=== PATIENT | female | born 1950 | race African-American/Black ===

== ENCOUNTER → 2017-02-05 | Outpatient (CLI) | payer OTHER ==
[~2017-02-05] MED LIST: ADVAIR 250-501 EACH INH; ALBUTEROL17 GM INH; ALBUTEROL20 ml INH; ALL DAY ALLERGY10 M3 PO; ASPIRIN EC81 M1 PO; ASPIRIN ENTERI325 M1 PO; ASPIRIN81 MG PO; CARVEDILOL12.5 MG PO; CHLORTHALIDONE50 M1 PO; COREG3.125 MG PO; COZAAR100 MG PO; D3 DOTS2000 UNIT PO; DIFLUCAN100 MG PO; FENOFIBRATE48 MG PO; HYDROCODON-ACE1 EAC7 PO; ISOSORBIDE MONO30 M1 PO; JANUVIA50 MG PO; LANTUS SOLOSTAR3 ML SUBQ; LEVOFLOXACIN500 MG PO; LIPITOR40 MG PO; LIPITOR80 MG PO; LOSARTAN POTASS25 MG PO; LOSARTAN POTASS50 MG PO; LOSARTAN-HCTZ1 EAC2 PO; METFORMIN HCL500 M1 PO; METHYLPREDNISOLO4 M1 PO; MONTELUKAST SOD10 MG PO; MONUROL3 GM PO; NATEGLINIDE120 MG PO; NITROSTAT0.4 MG SL; NORVASC10 MG PO; NYSTATIN5 ML PO; OMEGA 3 FISH1 CAP.EC PO; PLAVIX PO; SPIRIVA18 MCG INH; TAMIFLU6 MG/1 ML PO; TESSALON PERLE100 M1 PO; TIZANIDINE HCL2 MG PO; VITAMIN D5000 UNIT PO; ZETIA PO; ZYRTEC10 M1 PO
--- NOTE | ~2017-02-05 | US77 ---
[facility] A Service of [facility] RADIOLOGY TEXT RESULTS PATIENT: COLIN JONES LOCATION: [facility] : 48 UNIT #: [id number] AGE: [address]: Kathleen العراقي MD SEX: F ORDER DR: [id number] [facility] [address] [place], [place] [address] [id number] O MR#: [id number] Acc #: [id number] NAME: COLIN JONES : 1950 SEX: F STUDY DATE/TIME: 02/05/2017 12:27 UNIT: [facility] ROOM: STUDY DESCRIPTION: US Kidney Bilateral Complete Attending Physician: Kathleen العراقي M.D. Referring Physician: Kathleen العراقي M.D. Ordering Physician: Kathleen العراقي M.D. Primary Care Physician: Víctor Caballero MEDICAL IMAGING REPORT This report is preliminary unless electronic signature is present EXAM Renal ultrasound. HISTORY Stage 3 chronic kidney disease. PROCEDURE Grayscale and Doppler imaging of the kidneys and bladder. COMPARISON STUDIES None FINDINGS Right kidney measures 9.9 cm. The left kidney measures 9.4 cm. No hydronephrosis. Bladder is decompressed and not seen. IMPRESSION Negative renal ultrasound. Dictated by... Juni Oliveira M.D. THIS IS AN ELECTRONICALLY VERIFIED REPORT Juni Oliveira M.D. at 02/06/2017 7:05 AM Chan TD: 02/05/2017 18:21 JOB #: [id number] MEDICAL IMAGING REPORT COPY
== END | disposition home or self-care (01) ==
LOC: CGUS 11:47
DX: I12.9 Hypertensive chronic kidney disease with stage 1 through stage 4 chronic kidney disease, or unspecified chronic kidney disease (principal); N18.3 Chronic kidney disease, stage 3 (moderate)
CPT/HCPCS: 76770

== ENCOUNTER 2017-07-30 02:38 | Observation (INO) | payer OTHER ==
[~2017-07-30] VITALS: Ht 165.1 cm; Wt 65.1 kg
--- NOTE | ~2017-07-30 | CT71 ---
[facility] A Service of [facility] RADIOLOGY TEXT RESULTS PATIENT: COLIN JONES LOCATION: [facility] [id number] : 49 UNIT #: [id number] AGE: [address]: LUKE JOY V SEX: F ORDER DR: [id number] [facility]. [place], [place] [address] [id number] I MR#: [id number] Acc #: [id number] NAME: COLIN JONES : 1950 SEX: F STUDY DATE/TIME: 07/30/2017 3:34 UNIT: [facility] ROOM: [facility] STUDY DESCRIPTION: CT Head Wo Contrast Attending Physician: Luke Joy M.D. Ordering Physician: Sean Romo D.O. Primary Care Physician: Víctor Rivers MEDICAL IMAGING REPORT This report is preliminary unless electronic signature is present EXAM CT head without contrast INDICATION Dizziness and headache tonight. PROCEDURE Unenhanced CT of the head. This CT examination was performed with one or more of the following radiation dose reduction techniques: automatic exposure control, adjustment of mA and/or kV according to patient size, and iterative reconstruction. COMPARISON None. FINDINGS No acute hemorrhage, abnormal mass effect, extraaxial fluid collection or hydrocephalus. No depressed calvarial fracture. The paranasal sinuses and mastoid air cells are clear. IMPRESSION No acute intracranial findings. Dictated by... Juni Oliveira M.D. THIS IS AN ELECTRONICALLY VERIFIED REPORT Juni Oliveira M.D. at 07/31/2017 9:56 PM EED/adiel TD: 07/30/2017 12:29 JOB #: [id number] [facility] A Service of [facility] RADIOLOGY TEXT RESULTS PATIENT: COLIN JONES LOCATION: [facility] [id number] : 49 UNIT #: [id number] AGE: [address]: LUKE JOY V SEX: F ORDER DR: MEDICAL IMAGING REPORT Page 1 of 1 COPY
--- NOTE | ~2017-07-30 | CO ---
Unit #: [id number] #: [id number] Patient: COLIN JONES [id number] [facility]. [place], [place] [address] [id number] I MR#: [id number] NAME: COLIN JONES ROOM: [facility] Age: 67 Sex: F Admission Date: 07/30/2017 : 1950 Attending Physician: Tacho Vazquez M.D. Primary Care Physician: Víctor Rivers Consultation Date: 07/30/2017 CONSULTATION REPORT REASON FOR CONSULTATION Nears syncope. HISTORY OF PRESENT ILLNESS The patient is a 67-year-old female with extensive history in the past of peripheral vascular as well as coronary artery disease. The patient had a cardiac cath in 02/2013 that showed nonobstructive disease except for 60% to 70% RCA and she was treated medically. She also has had a history of stent placed to the right iliac and that stent was patent. She has renal artery stenosis at 70% in the right side. She has a history of a stroke 10 years ago, but most recently was at [facility] and presented with symptoms of a stroke. She had respiratory failure. She qualified for tPA. A CT of the head showed a right internal carotid artery stenosis and she underwent emergent thrombectomy. Echocardiogram done at [facility] showed normal LV function, estimated ejection fraction 88%, severe left atrial enlargement, ichb-ce-pelltpla mitral stenosis with valve area of 1.44 cm2, and moderate MR. She had a negative bubble study. She also had a Holter monitor that showed no arrhythmias and was recommended for outpatient event monitor. The patient reports to me that she had, had a heart attack, but I see no documentation of this and no consultation with Cardiology. Her last ischemic workup with cardiac cath done at [facility] in 2014. The patient had respiratory failure during that admission and she was placed on the ventilator and eventually extubated. She also developed some hematuria. Her anti-platelet was held. She had been on aspirin and Brilinta. She underwent a cystoscopy that found a bladder tumor. She had a bladder tumor biopsy and fulguration of bladder tumor. Pathology came back positive for urothelial carcinoma. She did have persistent hematuria and the decision was made to stop her Brilinta and she was discharged on aspirin only. Yesterday, the patient had some back pain and she rubbed Beng[place] on her back. She laid in bed and under a few blanket she became very hot and sweaty and felt very weak. There was apparently some loss of bowel. Her daughter was concerned and EMS brought her to [facility] because it was the closest facility. She is currently asymptomatic. She did have some orthostatics done, lying was 155/49, sitting was 112/53, and standing was 109/46 with an unremarkable change in heart rate with heart rate as high as 73. The patient is in no acute distress. PAST MEDICAL HISTORY 1. Significant for history of stroke 10 years ago. History of [place] and stent in the . Last cardiac cath was in 02/2015, 60% to 70% ostial Unit #: [id number] #: [id number] Patient: COLIN JONES RCA, other disease was nonobstructive, normal LV function, moderate to severe mitral valve stenosis with mitral valve area of 1.44 cm2, reported mild in the past, but on most recent echo with no significant stenosis was noted only calcification. 2. Diabetes. 3. Chronic obstructive pulmonary disease. 4. Hypertension. 5. Anemia. 6. Renal artery stenosis. 7. Iliac stenosis, status post iliac stent, patent on last coronary angiography. 8. Status post acute CVA with thrombectomy to the right internal carotid artery and status post tPA administration. 9. Hematuria. 10. Urothelial carcinoma of recent diagnosis. SOCIAL HISTORY The patient does not smoke. She is an ex-smoker. No alcohol or drug abuse. ALLERGIES Penicillin, codeine, and grass. HOME MEDICATIONS Zyrtec 10 mg daily, losartan and hydrochlorothiazide 1 tab p.o. daily, Tessalon Perles 100 mg every 8 hours, methylprednisolone 4 mg daily, nateglinide 120 mg t.i.d. before meals. FAMILY HISTORY Noncontributory. REVIEW OF SYSTEMS Complains of weakness, flushing, feeling hot. No fever, chills, cough, nausea, vomiting, diarrhea, headache, loss of consciousness, chest pain, pressure tightness, palpitations, or shortness of air. All other review of systems is negative. PHYSICAL EXAMINATION GENERAL: The patient is awake and alert, in no apparent distress. Color is pink. SKIN: Warm and dry. VITAL SIGNS: Afebrile, heart rate 73, blood pressure 156/83. HEENT: Pupils equal, round, and reactive. NECK: Normal carotid upstrokes. No auscultated bruit. Negative JVD, lying supine. Negative hepatojugular reflux. CHEST: Respirations are regular, unlabored at rest. Bilateral breath sounds have good air entry throughout all lung celeste. No crackles, rubs, or wheezes are heard. HEART: S1 and S2. Regular rate and rhythm. No rubs or gallops. 2/6 end-diastolic murmur. ABDOMEN: Soft, nontender, and nondistended. Positive bowel sounds in all 4 quadrants. No ascites noted. EXTREMITIES: Bilateral lower extremities have no pretibial pitting edema. DP/PT pulses are 2+. Cap refill less than 3 seconds. MUSCULOSKELETAL: Moves all extremities without difficulty. DIAGNOSTIC STUDIES CARDIOVASCULAR STUDIES: EKG shows sinus rhythm with left atrial Unit #: [id number] #: [id number] Patient: ROBERT,COLIN enlargement and left ventricular hypertrophy. LABORATORY RESULTS: Urinalysis shows 3+ leukocyte, nitrites are negative, trace protein, present yeast, negative for bacteria. White blood cell count 13.9, hemoglobin 11, hematocrit 34.7, and platelet count 442. Sodium 134, potassium 3.8, chloride 96, CO2 of 28, BUN 25, creatinine 1.4. Troponin negative x1. IMAGING STUDIES: CT of the head was unremarkable. Chest x-ray showed cardiomegaly. IMPRESSION 1. Near syncope with loss of bowel control. 2. History of coronary artery disease with nonobstructive except for 60% to 70% right coronary artery treated medically. 3. Recent stroke, status post tPA administration and thrombectomy of the right carotid artery. 4. Orthostasis. 5. Recent diagnosis of bladder cancer, status post biopsy and fulguration, positive for urothelial carcinoma. 6. Hypertension. 7. Hyperlipidemia. 8. Significant peripheral vascular disease. PLAN The patient is orthostatic and encourage her to use DECLAN hose. We will stop hydrochlorothiazide and possibly Cozaar. We will discontinue the patient's hydrochlorothiazide and reduce her losartan to 25 mg a day to help prevent orthostasis. She appears dry and is getting IV fluids. No further cardiac workup planned at this time. Dictated by... Priya Patterson APRN LR/amberly TD: 07/30/2017 22:17 JOB #: [id number] CONSULTATION REPORT Page 1 of 1 X X CONSULTATION REPORT
--- NOTE | ~2017-07-30 | DS ---
Unit #: [id number] #: [id number] Patient: COLIN JONES [id number] [address] [place], [place] [address] [id number] I MR#: [id number] NAME: COLIN JONES ROOM: 5 Age: 67 Sex: F Admission Date: 07/30/2017 : 1950 Discharge Date: 08/01/2017 Attending Physician: Tacho Vazquez M.D. Primary Care Physician: Víctor Rivers DISCHARGE SUMMARY DISCHARGE DIAGNOSES 1. Syncope with collapse. 2. Hypotension. 3. Hypovolemia. HOSPITAL COURSE AND PERTINENT HISTORY The patient is a 67-year-old woman with a recent prior complicated medical history. She was recently admitted at [facility] from 06/25/2017 to 07/28/2017 for a right MCA thrombosis for which she underwent a tPA and then thrombectomy following which was a prolonged course of respiratory failure being on a ventilator, being treated for COPD and pneumonia. Followed by hematuria secondary to bladder cancer and underwent clot evacuation and fulguration, only maintained on aspirin due to risk of bleeding with any addition of antiplatelet or anticoagulant. The patient presented following a syncopal with collapsed episode while at home. On admission, she was noted to be hypotensive and hypovolemic. Her antihypertensive medication dosage losartan with hydrochlorothiazide was discontinued and she was put on a lowered dose of Cozaar 25 mg once daily. Also during her admission, she was noted to have cystitis for which she was receiving empiric IV antibiotic. However, urine cultures, which were done twice both demonstrated contaminated specimens. Therefore, she will be discharged on outpatient single dose of fosfomycin for empiric therapy. At time of discharge, the patient's vitals are stable. The patient is comfortable, breathing comfortably, afebrile. She will be discharged home with Home Health Services, which were initially set up during her prior discharge from [facility] and she will continue all of her previous medications with exception of losartan/hydrochlorothiazide, which was discontinued and only be on the lower dose of losartan 25 mg once a day. DISCHARGE MEDICATIONS Albuterol inhaler 2 puffs q.6 p.r.n., Advair 250/50 one puff daily, Medrol Dosepak tapered dose, Spiriva 1 inhalation daily, nateglinide 120 mg p.o. t.i.d. before meals, Januvia 50 mg p.o. daily, cetirizine 10 mg p.o. daily, Coreg 12.5 mg p.o. b.i.d., fenofibrate 48 mg p.o. once daily, Singulair 10 mg p.o. once daily, enteric-coated aspirin 81 mg p.o. once daily, fosfomycin 3 g single dose with glass of water, Cozaar 25 mg 1 tablet p.o. once daily. DISCHARGE INSTRUCTIONS Follow up with primary care physician. Follow up with Home Health Services. Follow up with dermatologist, Dr. Chilel, on 10/01/2017 at 12:30 p.m. Unit #: [id number] #: [id number] Patient: COLIN JONES Dictated by... Nasima Unger/amberly TD: 08/04/2017 09:30 JOB #: [id number] DISCHARGE SUMMARY Page 1 of 1 X X DISCHARGE SUMMARY
--- NOTE | ~2017-07-30 | CR72 ---
[facility] A Service of [facility] & [facility] RADIOLOGY TEXT RESULTS PATIENT: COLIN JONES LOCATION: [facility] 575-01 : [birth year] UNIT #: [id number] AGE: [address]: LUKE JOY V SEX: F ORDER DR: [id number] [facility] [address] [place], [place] [address] [id number] I MR#: [id number] Acc #: [id number] NAME: COLIN JONES : 1950 SEX: F STUDY DATE/TIME: 07/30/2017 3:23 UNIT: [facility] ROOM: [facility] STUDY DESCRIPTION: CR Chest Single View Portable Attending Physician: Luke Joy M.D. Ordering Physician: Sean Romo D.O. Primary Care Physician: Víctor Rivers MEDICAL IMAGING REPORT This report is preliminary unless electronic signature is present EXAM Portable chest INDICATION Syncope today. PROCEDURE Frontal view chest. COMPARISON 01/25/2016 FINDINGS Moderate cardiomegaly. Pulmonary vessels are very similar to the prior. No dense consolidation, visible pleural fluid, or pneumothorax. IMPRESSION Cardiomegaly. No active process. Dictated by... Juni Oliveira M.D. THIS IS AN ELECTRONICALLY VERIFIED REPORT Juni Oliveira M.D. at 07/31/2017 9:56 PM APPLED/symone TD: 07/30/2017 11:16 JOB #: [id number] MEDICAL IMAGING REPORT Page 1 of 1 COPY
--- NOTE | ~2017-07-30 | HP ---
Unit #: [id number] #: [id number] Patient: COLIN JONES [id number] [facility] [address] [place], [place] [address] [id number] I MR#: [id number] NAME: COLIN JONES ROOM: [id number] Age: 67 Sex: F Admission Date: 07/30/2017 : 1950 Attending Physician: Treasure Seay M.D. Primary Care Physician: Víctor Rivers HISTORY AND PHYSICAL CHIEF COMPLAINT Near syncope. HISTORY This pleasant 67-year-old female with COPD, AODM, CAD, is admitted for near syncope. Patient was recently admitted to [facility] 06/25 through 07/28/2017 for a right MCA M1 CVA. Underwent tPA, and then thrombectomy with right internal carotid artery stent. Was intubated. After extubation, had to be reintubated twice with the COPD and possibly aspiration pneumonia. Was placed on Brilinta and aspirin. After the stent placement, developed hematuria. Cystoscopy was performed to evacuate the bladder clot and fulguration had to be done for bladder cancer. Patient really has no residual from her stroke. She was discharged from [facility] 2 days ago. Early this morning she had some increased back pain and her daughter put some [place] on her back. She felt cold, and then got up to walk through the house to use the bathroom. She became weak, diaphoretic. Had some loose stool, then lightheadedness. Her daughter gave her nitroglycerin. An ambulance was called. Although the family requested going back to [facility], the ambulance told the family that the ER wait would be too long, and she was brought to [facility] ER. Here her initial vital signs are stable. Lab work shows that she is very mildly dehydrated, but the rest of her blood work looks good except for mild leukocytosis although the patient is taking a Medrol Dosepak. In the ER, she was bolused with 500 mL of saline. Patient denies chest pain or palpitations with the above. She does have a history of CAD and is status post PCI and stent x2. When she was admitted to this facility 01/2016 an echo was performed showing normal ejection fraction. Mild to moderate LVH. Calcified mitral apparatus, moderate to severe mitral stenosis and moderate MR. Mild TR. Mild aortic valve stenosis. Right ventricular systolic pressures of 30-40 mmHg. PAST MEDICAL HISTORY 1. Recent admission to [facility] for a right MCA CVA. Please see above details. 2. COPD. 3. Esophageal spasm. Last EGD performed 01/2016 revealed a hiatal hernia and a nonobstructing esophageal ring with mild gastritis. 4. AODM. 5. Obstructive sleep apnea. 6. Hypertension. 7. Moderate left internal carotid artery stenosis 60-65%. 8. CAD, status post PCI and stent x2 with normal ejection fraction, Unit #: [id number] #: [id number] Patient: COLIN JONES valvular heart disease, please see above. 9. History of anemia. 10. Ureteral stent. 11. Bladder cancer status post cystoscopy with fulguration recently performed. 12. Hysterectomy. 13. Perforated bowel after a possible stent was placed in the kidney. Patient required colostomy and then reversal. 14. Cholecystectomy. 15. Eye surgery. ALLERGIES Allergies to penicillin, codeine and grass. HOME MEDICATIONS I have a discharge medication sheet from [facility] which lists the followin. Albuterol 2 puffs q.6 hours as needed. 2. Aspirin 81 mg daily. 3. Medrol Dosepak. 4. Spiriva, 1 puff daily. 5. Coreg 12.5 mg b.i.d. 6. Vitamin D. 7. Cranberry supplement. 8. Benadryl 25 mg q.6 hours as needed. 9. Stool softener. 10. Fenofibrate 48 mg daily. 11. Flonase nasal spray. 12. Advair 250/50, 1 puff b.i.d. 13. Cozaar 50 mg daily. 14. Starlix 120 mg t.i.d. before meals. 15. Nitroglycerin p.r.n. nasal saline. 16. Januvia 50 mg daily. FAMILY HISTORY CAD. SOCIAL HISTORY The patient lives with her daughter. She stopped smoking for a month but she did smoke early this morning. Does not drink alcohol. REVIEW OF SYSTEMS Notable for lightheadedness, sweating, back pain, recent CVA, COPD, AODM, CAD, bladder cancer, hypertension, above mentioned surgery, eye surgery, cholecystectomy. All other systems were reviewed and otherwise negative. PHYSICAL EXAMINATION GENERAL: Pleasant 67-year-old female, currently in no acute distress. VITAL SIGNS: Temperature 98.2, pulse 66, respirations 15, blood pressure 140/48. O2 saturation is 100% on room air. HEENT EXAMINATION: Eyes PERRLA. Extraocular muscles are intact. Pharynx is benign. NECK: Supple without adenopathy or thyromegaly. CHEST: Chest is clear. CARDIAC: Normal S1 and S2 with a 3/6 diastolic murmur best heard at the apex. ABDOMEN: Bowel sounds are present. No hepatosplenomegaly, tenderness or masses. There is bruising in the right groin from recent angiography. Unit #: [id number] #: [id number] Patient: COLIN JONES EXTREMITIES: With mild edema. Pedal pulses are present. NEUROLOGIC EXAM: Patient is awake, alert, oriented. Her cranial nerves are intact. She has +5 out of 5 strength throughout. DIAGNOSTIC STUDIES LABORATORY: Admission labs - hematocrit 34.7, MCV 79, white blood count is 13.9, platelet count is 442. SMA-12 - glucose 145, BUN 25, sodium 134, chloride is 98, calcium is 8.2, albumin is 3.2. Cardiac markers are negative. Urinalysis is pending. IMAGING: Chest x-ray - no acute disease. Head CT - no acute disease. CARDIOVASCULAR: EKG - sinus rhythm, rate 63, LVH. Negative cardiac enzymes. ASSESSMENT 1. Near syncope. Patient was just discharged from [facility] 2 days ago, after a prolonged hospital stay including prolonged ICU stay. She ambulated to the bathroom after getting out of her bed early this morning, felt diaphoretic with near syncope. Hopefully, this is related to deconditioning along with mild dehydration, obviously will rule out orthostatic hypotension. Given patient's valvular heart disease, will rule out arrhythmia as well. It is of note that a Holter monitor was recently performed at [facility] which was negative for significant arrhythmia according to the discharge summary. 2. Admission 06/25 through 07/28/2017 to [facility] for a right MCA M1 CVA status post tPA and then thrombectomy. Patient was on a ventilator for COPD and pneumonia. 3. Hematuria at [facility] secondary to bladder cancer. Patient underwent clot evacuation and fulguration. Is only maintained on aspirin at this time as she bled with a combination of aspirin and Brilinta. 4. Stable COPD. 5. AODM. 6. CAD, status post PCI and stent x2 with moderate to severe mitral stenosis, moderate MR and mild aortic stenosis. 7. Essential hypertension. PLANS 1. IV fluids. 2. Check Holter monitor, orthostatics, repeat cardiac enzymes and consult cardiology. 3. Obtain urinalysis. 4. SCDs for DVT prophylaxis. Dictated by Treasure Seay M.D. Unit #: [id number] #: [id number] Patient: COLIN JONES XIN/df TD: 07/30/2017 05:53 JOB #: [id number] HISTORY AND PHYSICAL Page 1 of 1 X Treasure Seay MD HISTORY AND PHYSICAL
--- NOTE | ~2017-07-30 | EKG ---
PATIENT: COLIN JONES UNIT #: [id number] Ventricular Rate: 69 BPM Atrial Rate: 69 BPM P-R Interval: 140 ms QRS Duration: 90 ms Q-T Interval: 418 ms QTC Calculation(Bezet): 447 ms P [place]: 47 degrees Calculated R [place]: 39 degrees Calculated T [place]: 51 degrees Diagnosis Line: Normal sinus rhythm Diagnosis Line: Possible Left atrial enlargement Diagnosis Line: Left ventricular hypertrophy Diagnosis Line: Abnormal ECG Diagnosis Line: When compared with ECG of 30-JUL-2017 03:09, Diagnosis Line: (unconfirmed) Diagnosis Line: No significant change was found Diagnosis Line: Confirmed by SHERRY VELASQUEZ MD ([id number]) on Diagnosis Line: 08/01/2017 10:49:39 AM INTERPRETING MD: RON REID
--- NOTE | ~2017-07-30 | EKG ---
PATIENT: COLIN JONES UNIT #: [id number] Ventricular Rate: 63 BPM Atrial Rate: 63 BPM P-R Interval: 172 ms QRS Duration: 90 ms Q-T Interval: 444 ms QTC Calculation(Bezet): 454 ms P [place]: 66 degrees Calculated R [place]: 46 degrees Calculated T [place]: 52 degrees Diagnosis Line: Normal sinus rhythm Diagnosis Line: Possible Left atrial enlargement Diagnosis Line: Left ventricular hypertrophy Diagnosis Line: Abnormal ECG Diagnosis Line: When compared with ECG of 29-JAN-2016 08:34, Diagnosis Line: No significant change was found Diagnosis Line: Confirmed by SHERRY VELASQUEZ MD ([id number]) on Diagnosis Line: 08/01/2017 10:48:41 AM INTERPRETING MD: RON REID
--- NOTE | ~2017-07-30 | HM ---
Unit #: [id number] #: [id number] Patient: COLIN JONES [id number] [facility]. [facility] [address], [place] [address] [id number] MR#: [id number] NAME: COLIN JONES : 1950 SEX: F STUDY DATE/TIME: 08/14/2017 UNIT: [facility] ROOM: 575 STUDY DESCRIPTION: Twenty-four hour Holter Attending Physician: Tacho Vazquez M.D. Primary Care Physician: Víctor Rivers CARDIOLOGY REPORT EXAM Twenty-four hour Holter report. DATE APPLIED July 30, 2017. DATE SCANNED August 06, 2017. ORDERED BY Tcaho Vazquez M.D. READ BY [facility] CardiologyCarissa M.D. REASON FOR THE STUDY Syncope and chest pain. FINDINGS Underlying rhythm is normal sinus rhythm with an average heart rate of 78 beats per minute, minimum heart rate of 46 beats per minute, and a maximum heart rate of 110 beats per minute. The minimum heart rate of 46 beats per minute is noted at 7:56 a.m. The maximum heart rate of 110 beats per minute is noted at 7:33 a.m. Patient had a 1.75 second pause noted at 8:42 a.m. Patient had 11 single premature ventricular complexes noted and 2 ventricular couplets noted. Patient had 10 single premature atrial complex noted. Patient had several 4-beat run of paroxysmal supraventricular tachycardia with heart rate ranging from 120 to 130 beats per minute. Patient did not record any symptoms. CONCLUSION 1. Underlying rhythm is normal sinus rhythm with an average heart rate of 78 beats per minute, minimum heart rate of 46 beats per minute and a maximum heart rate of 110 beats per minute. 2. No sustained atrial or ventricular arrhythmias noted. 3. Longest pause noted was a 1.75 second pause noted at 8:42 a.m. 4. Very occasional single multifocal premature ventricular complex and single premature atrial complex noted. 5. Patient had several 4-beat run of paroxysmal supraventricular tachycardia with heart rate ranging from 120 to 130 beats per minute. Unit #: [id number] #: [id number] Patient: COLIN JONES Dictated by... Nasima Willson/linda TD: 08/14/2017 16:19 JOB #: [id number] CARDIOLOGY REPORT Page 1 of 1 X Carissa Chilel MD HOLTER MONITOR REPORT
[~2017-07-30 02:38] MED LIST changes: -ADVAIR 250-501 EACH INH; -ALBUTEROL17 GM INH; -ALBUTEROL20 ml INH; -ALL DAY ALLERGY10 M3 PO; -ASPIRIN EC81 M1 PO; -CARVEDILOL12.5 MG PO; -D3 DOTS2000 UNIT PO; -FENOFIBRATE48 MG PO; -JANUVIA50 MG PO; -LOSARTAN POTASS25 MG PO; -LOSARTAN-HCTZ1 EAC2 PO; -METHYLPREDNISOLO4 M1 PO; -MONTELUKAST SOD10 MG PO; -MONUROL3 GM PO; -NATEGLINIDE120 MG PO; -SPIRIVA18 MCG INH
[2017-07-30 03:22] LABS: BASOPHIL# 0.1 X10e3 (0-0.3); BASOPHIL% 0.6 % (0-2.5); EOSINOPHIL# 0.4 X10e3 (0-0.7); EOSINOPHIL% 2.6 % (0.0-7.0); HEMATOCRIT 34.7 % (35.0-45.0); LYMPHOCYTE# 1.5 X10e3 (1.0-3.5); LYMPHOCYTE% 10.9 % (17.0-45.0); MEAN CELL VOLUME 79.1 FL (83-96); MEAN CORPUSCULAR HGB CONC 31.6 g/dL (30-36); MEAN PLATELET VOLUME 9.1 FL (6.5-11.5); MONOCYTE# 1.2 X10e3 (0-1.0); MONOCYTE% 8.3 % (3.0-12.0); NEUTROPHIL# 10.8 X10e3 (1.5-7.1); NEUTROPHIL% 77.6 % (40-75); PLATELET COUNT 442 X10e3 (140-420); RED BLOOD COUNT 4.38 X10e (3.90-5.30); RED CELL DISTRIBUTION WIDTH 20.7 % (11.0-15.5); WHITE BLOOD COUNT 13.9 X10e3 (4.0-10.5)
[2017-07-30 03:23] LABS: DIFF IND NO
[2017-07-30 03:36] LABS: POC - CKMB 1.4 ng/mL (0.0-7.9); POC - TROPONIN <0.05 ng/mL (<=0.05)
[2017-07-30 03:59] LABS: ALBUMIN SERUM 3.2 g/dL (3.5-5.0); BILIRUBIN, DIRECT 0.2 mg/dL (0.0-0.2); BILIRUBIN,INDIRECT 0.3 mg/dL (0.0-0.9); BILIRUBIN,TOTAL 0.5 mg/dL (0.2-2.0); BUN/CREATININE RATIO 17.85; CALCIUM SERUM 8.2 mg/dL (8.4-10.2); CREATININE SERUM 1.4 mg/dL (0.6-1.4); GLOM FILT RATE Estimated 44.6 mL/min (>60); POTASSIUM 3.8 mmol/L (3.5-5.1)
[2017-07-30] MEDS ORDERED: ALL DAY ALLERGY10 M3 PO (04:08)
[2017-07-30] MEDS ORDERED: LOSARTAN-HCTZ1 EAC2 PO (04:09)
[2017-07-30] MEDS ORDERED: TESSALON PERLE100 M1 PO (04:10)
[2017-07-30] MEDS ORDERED: METHYLPREDNISOLO4 M1 PO (04:11)
[2017-07-30] MEDS ORDERED: FENOFIBRATE48 MG PO (04:12)
[2017-07-30] MEDS ORDERED: NATEGLINIDE120 MG PO (04:12)
[2017-07-30] MEDS ORDERED: CARVEDILOL12.5 MG PO (04:13)
[2017-07-30] MEDS ORDERED: D3 DOTS2000 UNIT PO (04:13)
[2017-07-30] MEDS ORDERED: MONTELUKAST SOD10 MG PO (04:13)
[2017-07-30] MEDS ORDERED: JANUVIA50 MG PO (04:14)
[2017-07-30] MEDS ORDERED: ALBUTEROL20 ml INH (04:15)
[2017-07-30] MEDS ORDERED: ADVAIR 250-501 EACH INH (04:17)
[2017-07-30] MEDS ORDERED: SPIRIVA18 MCG INH (04:18)
[2017-07-30 05:37] LABS: URINE SOURCE CLEAN CATCH
[2017-07-30 06:07] LABS: URINE APPEARANCE CLOUDY; URINE BILIRUBIN NEG (NEG); URINE BLOOD 3+ (NEG); URINE COLOR YELLOW; URINE GLUCOSE NEG (NEG); URINE KETONE NEG (NEG); URINE LEUKOCYTE ESTERASE 3+ (NEG); URINE NITRATE NEG (NEG); URINE PROTEIN TRACE (NEG); URINE SPECIFIC GRAVITY 1.014 (1.003-1.035)
[2017-07-30 06:09] LABS: CULTURE INDICATED? YES; URBCS1 AUWI 100-200 /[HPF] (0-2); URINE BACTERIA AUWI 1+ (NEGATIVE); URINE SQUAMOUS EPITHELIAL CELL FEW /[HPF]; UWBCS1 AUWI 50-100 (0-5)
[2017-07-30 06:21] LABS: U HYALINE CASTS AUWI 0-2 /[LPF]; URINE YEAST PRESENT
[2017-07-30 11:41] LABS: HEMATOCRIT 31.7 % (35.0-45.0); HEMOGLOBIN 10.2 gm/dL (12.0-16.0); MEAN CELL VOLUME 78.9 FL (83-96); MEAN CORPUSCULAR HEMOGLOBIN 25.3 PG (28-34); MEAN CORPUSCULAR HGB CONC 32.1 g/dL (30-36); MEAN PLATELET VOLUME 8.9 FL (6.5-11.5); RED BLOOD COUNT 4.02 X10e (3.90-5.30); RED CELL DISTRIBUTION WIDTH 20.1 % (11.0-15.5); WHITE BLOOD COUNT 11.8 X10e3 (4.0-10.5)
[2017-07-30 12:13] LABS: BUN/CREATININE RATIO 17.27; CALCIUM SERUM 8.4 mg/dL (8.4-10.2); CREATININE SERUM 1.1 mg/dL (0.6-1.4); GLOM FILT RATE Estimated 59.8 mL/min (>60); POTASSIUM 3.8 mmol/L (3.5-5.1)
[2017-07-30 23:52] LABS: URINE APPEARANCE CLEAR; URINE BILIRUBIN NEG (NEG); URINE BLOOD 2+ (NEG); URINE COLOR YELLOW; URINE GLUCOSE 500 MG/DL (NEG); URINE KETONE NEG (NEG); URINE LEUKOCYTE ESTERASE 2+ (NEG); URINE NITRATE NEG (NEG); URINE PROTEIN NEG (NEG); URINE SPECIFIC GRAVITY 1.016 (1.003-1.035)
[2017-07-30 23:53] LABS: URBCS1 AUWI 50-100 /[HPF] (0-2); URINE BACTERIA AUWI NEG (NEGATIVE); URINE SQUAMOUS EPITHELIAL CELL OCC /[HPF]; UWBCS1 AUWI 50-100 (0-5)
[2017-07-31 05:47] LABS: HEMATOCRIT 32.6 % (35.0-45.0); HEMOGLOBIN 10.4 gm/dL (12.0-16.0); MEAN CELL VOLUME 78.8 FL (83-96); MEAN CORPUSCULAR HEMOGLOBIN 25.1 PG (28-34); MEAN CORPUSCULAR HGB CONC 31.8 g/dL (30-36); MEAN PLATELET VOLUME 9.2 FL (6.5-11.5); RED BLOOD COUNT 4.14 X10e (3.90-5.30); RED CELL DISTRIBUTION WIDTH 20.6 % (11.0-15.5); WHITE BLOOD COUNT 12.5 X10e3 (4.0-10.5)
[2017-07-31 06:44] LABS: BUN/CREATININE RATIO 15.55; CALCIUM SERUM 8.5 mg/dL (8.4-10.2); CREATININE SERUM 0.9 mg/dL (0.6-1.4); GLOM FILT RATE Estimated 76.2 mL/min (>60); POTASSIUM 3.7 mmol/L (3.5-5.1)
[2017-08-01] MEDS ORDERED: MONUROL3 GM PO (15:29)
[2017-08-01] MEDS ORDERED: LOSARTAN POTASS25 MG PO (15:30)
[2017-08-01] MEDS ORDERED: ALBUTEROL17 GM INH (15:31)
[2017-08-01] MEDS ORDERED: ASPIRIN EC81 M1 PO (15:43)
[2017-08-19] MEDS ORDERED: PROTONIX PO (16:47)
[2017-08-19] MEDS ORDERED: LASIX PO (16:49)
[2017-08-19] MEDS ORDERED: B-121000 MC1 PO (16:49)
[2017-08-19] MEDS ORDERED: LASIX20 MG PO (16:50)
== END 2017-08-01 16:21 | disposition home or self-care (01) ==
LOC: CED 02:38 → C5C 05:45 → CEDOF 05:45 → C5C 05:51 → CED 05:51 → CEDOF 05:51 → C5C 10:22 → CEDOF 10:22 → C5C 08-01 16:21
PROVIDERS: Emergency Medicine; Internal Medicine
DX: R55 Syncope and collapse (principal); I95.9 Hypotension, unspecified; E86.1 Hypovolemia; J44.9 Chronic obstructive pulmonary disease, unspecified; G47.33 Obstructive sleep apnea (adult) (pediatric); I10 Essential (primary) hypertension; I25.10 Atherosclerotic heart disease of native coronary artery without angina pectoris; I65.22 Occlusion and stenosis of left carotid artery; E11.8 Type 2 diabetes mellitus with unspecified complications; F17.200 Nicotine dependence, unspecified, uncomplicated; Z79.82 Long term (current) use of aspirin; Z79.899 Other long term (current) drug therapy; Z87.19 Personal history of other diseases of the digestive system; Z98.61 Coronary angioplasty status; Z86.2 Personal history of diseases of the blood and blood-forming organs and certain disorders involving the immune mechanism; Z85.51 Personal history of malignant neoplasm of bladder; Z86.73 Personal history of transient ischemic attack (TIA), and cerebral infarction without residual deficits; Z87.01 Personal history of pneumonia (recurrent)
CPT/HCPCS: 36415; 70450; 71010; 80048; 80076; 81003; 82550; 82553; 82947; 84484; 85025; 85027; 87086; 93005; 93225; 93226; 94640; 94664; 94760; 96360; 96361; 96374; 96376; 99285; G0378; J0692; J1815